=== PATIENT | male | born 1995 | race Caucasian/White ===

== ENCOUNTER 2020-02-03 22:07 | Emergency (ER) | payer OTHER, SELFPAY ==
[2020-02-03 22:08] VITALS: BP 147/72; PULSE 72; RESP 16; TEMP 36.7; O2SAT 100; BMI 20.7
--- NOTE | 2020-02-03 22:34 | ED_ITS ---
HPI - Back Pain/Injury General Chief Complaint: Back Pain/Injury Stated Complaint: BACK PAIN Time Seen by Provider: 02/03/20 22:22 History of Present Illness HPI Narrative: 24-year-old male who presents to emergency department for evaluation of right upper back and shoulder pain. 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 He states that he has been lifting heavy packages but does not recount an injury at work. He states about 1 week ago, on his day off, he developed right shoulder blade pain. He states that the pain is gotten worse and now involves his right shoulder, right shoulder blade and right upper back. He describes the pain as a ?hot iron ?in the areas described above. The pain is constant, and the pain is moderate to severe in intensity. The pain is worse with movement. He denies chest pain, shortness of breath, dyspnea on exertion, fever, chills, cough, nausea, vomiting, shortness of breath, dyspnea on exertion, pain or swelling in his extremities, numbness or weakness. The patient states that he has taken Tylenol and ibuprofen but not on a regular basis. He states the pain has gotten progressively worse to the point where he had to come to the hospital this evening for evaluation. Related Data Previous Rx's Medication Instructions Recorded cyclobenzaprine 10 mg PO TID #15 tab 02/03/20 Allergies Allergy/AdvReac Type Severity Reaction Status Date / Time No Known Allergies Allergy Verified 02/03/20 22:15 Review of Systems Review of Systems: Yes all other systems are reviewed and are negative Constitutional: Constitutional: Reports as per HPI Eyes: Eyes: Reports as per HPI ENT: Reports as per HPI Cardiovascular: Cardiovascular: Reports as per HPI Respiratory: Respiratory: Reports as per HPI Gastrointestinal: Gastrointestinal: Reports as per HPI Genitourinary: Genitourinary: Reports as per HPI Musculoskeletal: Musculoskeletal: Reports as per HPI Integumentary/Breasts: Skin/Breast: Reports as per HPI Neurologic: Reports as per HPI and Reports Abnormal speech present Psychiatric: Psychiatric: Reports as per HPI Allergic/Immunologic: Allergic/Immunologic: Reports as per HPI [facility] Past Medical History Attestation statement: The following information was validated with the patient. 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 He denies tobacco, alcohol or drug use. He is . Medical History (Updated 02/03/20 @ 22:44 by Carrington Fish MD) No known health problems Social History Social History Smoked in Last 30 Days: No Use of substances other than those prescribed or required for medical reasons: No Advance Directives: No Advance Directives Information Provided: Yes Physical Exam Vital Signs: Vital Signs: Last Vital Signs Temp 98.1 F 02/03/20 22:08 Pulse 72 02/03/20 22:08 Resp 16 02/03/20 22:08 BP 147/72 H 02/03/20 22:08 Pulse Ox 100 02/03/20 22:08 Body Mass Index 20.7 Const: General: cooperative, no acute distress, alert and awake Orientation/consciousness: oriented to person and oriented to place Limitations: no limitations HENMT: Head: Yes normal to inspection, Yes normocephalic and Yes atraumatic Ears: external ears normal General nose exam: Normal external nose present Face and sinus: Yes normal facial exam Mouth: Normal oral and palatal mucosa present Throat: Yes posterior oropharynx normal Eyes: General: appearance normal, both eyes and all related structures Periorbital: periorbital findings normal Eyelids: Yes eyelids normal Conjunctivae: conjunctivae normal Sclerae: sclerae normal Corneas: corneas normal Pupils: Equal, round and reactive pupils present Direct Ophthalmoscopy: normal light reflex Neck: Neck: Yes normal visual inspection and Yes supple Lymphatic: no lymphadenopathy noted Chest: Chest palpation & inspection: normal inspection of the chest and normal palpation of entire chest wall Resp: Effort & Inspection: normal respiratory effort, abnormal respiratory pattern, no audible wheezes and no respiratory distress Auscultation: clear to auscultation bilaterally, no crackles, no rales, no rhonchi and no wheezes Cardio: Rate: regular rate Rhythm: regular rhythm Heart sounds: S1 normal heart sound present, S2 normal heart sound present and no murmurs GI: Inspection: No distended Palpation (GI): Soft to palpation, nontender, no guarding and No hepatosplenomegaly present Auscultation: normal bowel sounds : General: Yes no CVA tenderness Back/Spine/Pelvis: Back: no CVA tenderness, No erythema, No warmth, No ecchymosis and back tenderness (Right scapula, right thoracic paraspinal muscles) Cervical Spine: cervical ROM normal Thoracic/Lumbar Spine: thoracic and lumbar spine normal to inspection, thoraco-lumbar ROM normal and straight leg raise negative bilaterally Skin: General skin exam: no rashes or lesions noted Lesions: no lesions Rashes: no rashes Wounds: no wounds Neuro: General: oriented to person and oriented to place Cranial nerves: Yes CN's II-XII intact bilaterally and Yes Equal, round and reactive pupils present Cognition (Neuro): normal cognition Speech: Abnormal speech present Motor exam (neuro): 5/5 motor strength present throughout Extrem: General: Yes normal to inspection, Yes full ROM, Yes no pedal edema and Yes no calf tenderness Psych: Appearance: grossly normal Mental Status: mental status grossly normal Speech and movement: Clear speech present Affect: normal affect Thought process: Normal thought process present Course Course Course Narrative: 24-year-old male with no significant past medical history presents the emergency department for evaluation right upper shoulder, scapula and thoracic back pain x1 week. 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 The patient has no systemic symptoms. Examination did reveal tenderness with palpation over his scapula right shoulder and right thoracic paraspinal muscles. His neurologic exam was normal. My impression is the patient had has a musculoskeletal injury and I did discuss this with him. He was started on ibuprofen 600 mg 3 times a day, Tylenol 1000 mg 3 times a day and cyclobenzaprine 10 mg 3 times a day. He was advised to apply ice for 15 minutes followed by heating pad on low for 15 minutes 4 to 6 times a day. He was advised to not work for 3 days and to follow-up with his doctor for re- evaluation in 2 days. I told him he should return to emergency department if his symptoms get worse or if he develops any new symptoms that are concerning to him. Discharge Plan Discharge Clinical Impression: Strain of muscle and tendon of back wall of thorax, initial encounter Muscle strain of right shoulder region Qualifiers: Encounter type: initial encounter Qualified Code(s): S46.911A - Strain of unspecified muscle, fascia and tendon at shoulder and upper arm level, right arm, initial encounter Patient Disposition: Home, Self-Care Instructions: Thoracic Back Strain (ED) Additional Instructions: Urine exam is consistent with a strain of your right shoulder and right back muscles. Apply ice for 15 minutes to the areas that hurt then apply a heating pad on low for 15 minutes, do this 4 to 6 times a day to help the healing process. Take ibuprofen 200 mg pills, 3 pills every 6 hours as needed for pain. Also take extra-strength Tylenol 500 mg pills, 2 pills every 6 hours as needed for pain. Take Flexeril (cyclobenzaprine) 10 mg pills, 1 pill every 6 hours as needed for pain and spasm. This medication will make you sleepy. Do not drive or work while taking this medication. No work for 3 days. Follow-up with your doctor in 2 days for re-evaluation. Please return to the emergency department if your symptoms get worse or if you develop any symptoms that are concerning to you. Prescriptions: New cyclobenzaprine 10 mg tablet 10 mg PO TID Qty: 15 RF: 0 Referrals: Chaz Vivas MD [Primary Care Provider] - 2 days
== END 2020-02-03 22:52 | disposition home or self-care (01) ==
PROVIDERS: Emergency Provider Emergency Medicine Emergency Medical Services; PCP Internal Medicine Pulmonary Disease
DX: S46.911A Strain of unspecified muscle, fascia and tendon at shoulder and upper arm level, right arm, initial encounter (principal); S29.012A Strain of muscle and tendon of back wall of thorax, initial encounter; X50.0XXA Overexertion from strenuous movement or load, initial encounter; Y93.9 Activity, unspecified; Y92.9 Unspecified place or not applicable; Y99.9 Unspecified external cause status
CPT/HCPCS: 99284